=== PATIENT | female | born 1995 | race African-American/Black ===

== ENCOUNTER 2025-05-12 12:40 | Emergency (ER) | payer OTHER, SELFPAY ==
[2025-05-12 12:52] VITALS: BP 127/78; PULSE 97; RESP 16; TEMP 36.3; O2SAT 100
--- NOTE | 2025-05-12 12:58 | ED.FEMALEGU ---
HPI - Female Genitourinary General Chief complaint: Vaginal Bleeding Stated complaint: large clots and pain from miscarriage patient presents to the [facility] with complaints of significant abdominal pain, heavy vaginal bleeding, and clots that began today. Patient noted for the last 5-6 days she has had vaginal bleeding and minimal cramping noted prior to this did have a positive test. Patient did have an [facility] care visit scheduled with a new OBGYN but she canceled this due to believing she was having a miscarriage. No significant symptoms until today. ibuprofen taken at home and heating pad applied to lower abdomen without relief of pain. denies dizziness, headache, shortness of breath, nausea, or vomiting Related Data Allergies Allergy/AdvReac Type Severity Reaction Status Date / Time No Known Allergies Allergy Verified 05/12/25 12:47 Review of Systems Constitutional: Constitutional: Reports as per HPI, Denies chills and Denies fatigue Eyes: Eyes: Reports no additional eye complaints ENT: Reports system reviewed and no additional complaints, except as documented Cardiovascular: Cardiovascular: Reports as per HPI, Denies chest pain, Denies rapid heart rate, Denies radiating jaw, neck or arm pain and Denies slow heart rate Respiratory: Respiratory: Reports as per HPI, Denies chest congestion, Denies cough, Denies dyspnea and Denies wheezing Gastrointestinal: Gastrointestinal: Reports no additional gastrointestinal complaints, Reports abdominal pain, Denies bloating, Denies constipation, Denies heartburn, Denies diarrhea, Denies nausea and Denies vomiting Genitourinary: Genitourinary: Reports as per HPI, Reports abnormal vaginal bleeding, Denies hematuria, Denies nocturia, Denies genital lesions, Denies dysuria, Reports pelvic pain, Denies flank pain, Denies urinary incontinence and Denies vaginal discharge Comments: heavy vaginal bleeding, large clots Musculoskeletal: Musculoskeletal: Reports as per HPI, Denies back pain and Denies myalgias Integumentary/Breasts: Skin/Breast: Reports as per HPI, Denies erythema, Denies rash and Denies skin ulcer Neurologic: Reports as per HPI, Denies headache(s), Denies numbness and Denies weakness Psychiatric: Psychiatric: Reports no additional psychiatric complaints Endocrine: Endocrine: Reports no additional endocrine complaints Hematologic/Lymphatic: Hematologic/Lymphatic: Reports no additional hematologic/lymphatic complaints Allergic/Immunologic: Allergic/Immunologic: Reports no additional allergic/immunologic complaints Exam Const: General: alert and diaphoretic Nutritional Appearance: well nourished Orientation/consciousness: patient oriented x3 Other: obviously uncomfortable holding abdomen. Patient crying. Resp: Effort & Inspection: normal respiratory effort Cardio: Rate: regular rate GI: Inspection: non-distended GI Palp: Yes Soft to palpation, Yes Tenderness to palpation present (GI), No Guarding due to palpation present (GI), No Rigid due to palpation, No Hernia present and No Rebound tenderness present Skin: General skin exam: normal color Rashes: no rashes Wounds: no wounds Neuro: General: patient oriented x3 Speech: normal speech Gait exam (Neuro): Normal gait present Psych: Appearance: grossly normal Mental Status: mental status grossly normal Affect: normal affect Attitude: cooperative Course Course Level of Care: Express Care Visit Vital Signs Vital signs: Vital Signs Temperature 97.3 F L 05/12/25 12:52 Pulse Rate 97 05/12/25 12:52 Respiratory Rate 16 05/12/25 12:52 Blood Pressure 127/78 05/12/25 12:52 Pulse Oximetry 100 05/12/25 12:52 Temperature 97.3 F L 05/12/25 12:52 Pulse Rate 97 05/12/25 12:52 Respiratory Rate 16 05/12/25 12:52 Blood Pressure 127/78 05/12/25 12:52 Pulse Oximetry 100 05/12/25 12:52 Transfer Transfered to: [place] Transportation: Other ( private vehicle) Transfer rationale: patient needs ultrasound and lab evaluation Accepting physician: Dr Kaufman [facility] Narrative Medical decision making narrative: patient obviously uncomfortable as having significant abdominal pain with recent positive test and vaginal bleeding. Patient needs evaluation in the emergency room with labs and ultrasound. Patient like to go to the closest facility. Patient drove herself to this facility encourage patient to have family pick her up, unable to have family bring her up patient is okay to drive to the hospital. Offered patient to call ambulance to have her transferred to the hospital patient declined. Differential Diagnosis Differential Diagnosis: Ectopic , miscarriage, abdominal pain, abnormal vaginal bleeding Medical Records I have reviewed the following patient records and this information was taken into consideration when formulating the assessment and plan.: previous labs, previous ER visits, previous hospitalizations and previous clinic visits Discharge Plan Discharge Clinical Impression: Abdominal pain, Abnormal vaginal bleeding Patient Disposition: Acute Care Hospital Condition: Stable Instructions: Abdominal Pain (ED) Patient Language: Cameroonian Follow-up/Referrals: UNKNOWN,DOCTOR [Primary Care Provider] Time of Disposition: 13:07
== END 2025-05-12 13:00 | disposition short-term general hospital (02) ==
PROVIDERS: Emergency Provider Nurse Practitioner Family
DX: N93.9 Abnormal uterine and vaginal bleeding, unspecified (principal); R10.9 Unspecified abdominal pain
CPT/HCPCS: 99202; G0463